=== PATIENT | male | born 1955 | race Caucasian/White ===

== ENCOUNTER 2017-09-18 01:24 | Inpatient (IN) | payer MEDICARE ==
[2017-09-18] MEDS: FUROSEMIDE 40 MG INJ IV (03:34)
[2017-09-18 03:50] LABS: ADD MAN DIFF? NO
[2017-09-18 04:05] LABS: WHITE BLOOD COUNT 8.5 10^3/ul (4.8-10.8)
[2017-09-18 04:05] LABS: BASOPHILS % 0.4 % (0.0-2.0); EOSINOPHILS # 0.1 10^3/ul (0.0-0.5); EOSINOPHILS % 1.3 % (0.0-7.0); HEMATOCRIT 46.9 % (42.0-52.0); HEMOGLOBIN 15.9 g/dl (14.0-18.0); LYMPHOCYTES # 2.1 10^3/ul (0.8-2.9); LYMPHOCYTES % 24.5 % (15.0-51.0); MEAN CORPUSCULAR HEMOGLOBIN 33.5 pg (29.0-33.0); MEAN CORPUSCULAR HGB CONC 33.9 g/dl (32.0-37.0); MEAN CORPUSCULAR VOLUME 98.7 fl (82.0-101.0); MEAN PLATELET VOLUME 12.3 fl (7.4-10.4); MONOCYTE # 0.8 10^3/ul (0.3-0.9); MONOCYTES % 9.1 % (0.0-11.0); NEUTROPHIL # 5.4 10^3/ul (1.6-7.5); NEUTROPHILS % 64.1 % (39.0-77.0); PLATELET COUNT 160 10^3/UL (140-415); RED BLOOD COUNT 4.75 10^6/ul (4.70-6.10); RED CELL DISTRIBUTION WIDTH 14.3 % (11.5-14.5)
[2017-09-18 04:09] LABS: ALANINE AMINOTRANSFERASE 29 IU/L (13-69); ALBUMIN 3.9 g/dl (3.3-4.9); ALBUMIN/GLOBULIN RATIO 1.02; ALKALINE PHOSPHATASE 102 IU/L (42-121); ANION GAP 16 (8-16); ASPARTATE AMINO TRANSFERASE 43 IU/L (15-46); BILIRUBIN,INDIRECT 2.3 mg/dl (0-1.1); BILIRUBIN,TOTAL 2.3 mg/dl (0.2-1.3); BLOOD UREA NITROGEN 13 mg/dl (7-20); CALCIUM 8.9 mg/dl (8.4-10.2); CARBON DIOXIDE 29 mmol/L (21-31); CHLORIDE 105 mmol/L (97-110); CREATININE 0.63 mg/dl (0.61-1.24); GLUCOSE 87 mg/dl (70-220); POTASSIUM 3.8 mmol/L (3.5-5.1); SODIUM 146 mmol/L (135-144); TOTAL PROTEIN 7.7 g/dl (6.1-8.1)
[2017-09-18 04:21] LABS: B-TYPE NATRIURETIC PEPTIDE 3560 PG/ML (0-125); TROPONIN-I 0.038 ng/ml (0.00-0.12)
[2017-09-18] MEDS ORDERED: ZOLPIDEM 5 MG TAB PO (09:00)
[2017-09-18] MEDS: LISINOPRIL 5 MG TAB PO (09:42)
[2017-09-18] MEDS: ASPIRIN (EC) 81 MG TAB PO (09:42)
[2017-09-18] MEDS: ENOXAPARIN 40 MG/0.4 ML SYG SC (09:43)
[2017-09-18] MEDS ORDERED: GLUCOSE GEL 15 GRAM TUBE BUCCAL (10:00)
[2017-09-18] MEDS ORDERED: DEXTROSE 50% 50 ML SYRINGE IV ×2 (10:00)
[2017-09-18] MEDS ORDERED: GLUCAGON 1 MG INJ IM (10:00)
[2017-09-18] MEDS ORDERED: GLUCOSE GEL 15 GRAM TUBE PO ×2 (10:00)
[2017-09-18] MEDS: LEVALBUTEROL (NEB) 0.31 MG/3 ML AMP HHN (11:08)
[2017-09-18] MEDS: INSULIN ASPART [NOVOLOG] 3 ML PEN SC ×3 (11:45→21:00)
[2017-09-18] MEDS: POTASSIUM CHLORIDE (SR) 20 MEQ TAB PO ×2 (13:20→22:09)
[2017-09-18] MEDS: FUROSEMIDE 20 MG INJ IV (17:28)
[2017-09-18] MEDS: metFORMIN 500 MG TAB PO (17:28)
[2017-09-18] MEDS ORDERED: FUROSEMIDE 20 MG INJ IV (18:00)
[2017-09-18] MEDS: ATORVASTATIN 80 MG TAB PO (22:08)
[2017-09-18] MEDS: traZODone 50 MG TAB PO (22:09)
[2017-09-19] MEDS: LEVALBUTEROL (NEB) 0.31 MG/3 ML AMP HHN
[2017-09-19] MEDS: ACCU-CHEK XX (02:00)
[2017-09-19] MEDS: FUROSEMIDE 20 MG INJ IV ×4 (05:50→21:30)
[2017-09-19] MEDS: INSULIN ASPART [NOVOLOG] 3 ML PEN SC ×4 (08:00→21:00)
[2017-09-19 08:28] LABS: ADD MAN DIFF? NO
[2017-09-19 08:31] LABS: BASOPHIL # 0.1 10^3/ul (0.0-0.1); BASOPHILS % 0.6 % (0.0-2.0); EOSINOPHILS # 0.2 10^3/ul (0.0-0.5); EOSINOPHILS % 2.4 % (0.0-7.0); HEMATOCRIT 42.9 % (42.0-52.0); HEMOGLOBIN 14.1 g/dl (14.0-18.0); LYMPHOCYTES # 1.4 10^3/ul (0.8-2.9); LYMPHOCYTES % 17.9 % (15.0-51.0); MEAN CORPUSCULAR HEMOGLOBIN 33.2 pg (29.0-33.0); MEAN CORPUSCULAR HGB CONC 32.9 g/dl (32.0-37.0); MEAN CORPUSCULAR VOLUME 100.9 fl (82.0-101.0); MEAN PLATELET VOLUME 11.7 fl (7.4-10.4); MONOCYTE # 0.6 10^3/ul (0.3-0.9); MONOCYTES % 7.7 % (0.0-11.0); NEUTROPHIL # 5.6 10^3/ul (1.6-7.5); NEUTROPHILS % 71.1 % (39.0-77.0); PLATELET COUNT 137 10^3/UL (140-415); POSITIVE DIFF @See below; RED BLOOD COUNT 4.25 10^6/ul (4.70-6.10); RED CELL DISTRIBUTION WIDTH 14.6 % (11.5-14.5)
[2017-09-19 08:31] LABS: WHITE BLOOD COUNT 7.9 10^3/ul (4.8-10.8)
[2017-09-19] MEDS: POTASSIUM CHLORIDE (SR) 20 MEQ TAB PO ×2 (08:31→10:49)
[2017-09-19] MEDS: ASPIRIN (EC) 81 MG TAB PO (08:31)
[2017-09-19] MEDS: metFORMIN 500 MG TAB PO ×2 (08:31→17:34)
[2017-09-19] MEDS: ENOXAPARIN 40 MG/0.4 ML SYG SC (08:32)
[2017-09-19 08:40] LABS: HEMOGLOBIN A1C 5.4 % (0-5.9)
[2017-09-19 08:58] LABS: MAGNESIUM 1.6 mg/dl (1.7-2.5)
[2017-09-19] MEDS ORDERED: LISINOPRIL 5 MG TAB PO (09:00)
[2017-09-19 09:03] LABS: ANION GAP 11 (8-16); BLOOD UREA NITROGEN 22 mg/dl (7-20); CALCIUM 8.5 mg/dl (8.4-10.2); CARBON DIOXIDE 34 mmol/L (21-31); CHLORIDE 101 mmol/L (97-110); CHOL/HDL RATIO 3.7 RATIO; CHOLESTEROL 101 mg/dl (100-200); CREATININE 0.74 mg/dl (0.61-1.24); GLUCOSE 119 mg/dl (70-220); HDL CHOLESTEROL 27 mg/dl (30-78); LDL CHOLESTEROL,CALCULATED 61 mg/dl; POTASSIUM 3.6 mmol/L (3.5-5.1); SODIUM 142 mmol/L (135-144); TRIGLYCERIDES 65 mg/dl (0-149)
[2017-09-19] MEDS ORDERED: FUROSEMIDE 40 MG INJ IV (11:00)
[2017-09-19 11:12] LABS: CREATINE KINASE 54 IU/L (23-200)
[2017-09-19 11:28] LABS: CK INDEX 3.4; TROPONIN-I 0.028 ng/ml (0.00-0.12)
[2017-09-19 11:29] LABS: CK-MB 1.86 ng/ml (0.0-2.4)
[2017-09-19] MEDS: MAGNESIUM SULFATE 4 GM/100 ML 100 ML IVPB (12:55)
[2017-09-19] MEDS: LEVALBUTEROL (NEB) 0.63 MG/3 ML AMP HHN ×2 (15:46→20:07)
[2017-09-19 16:19] LABS: AMPHETAMINE/METHAMPHETAMINE Negative (NEGATIVE); BARBITURATES Negative (NEGATIVE); BENZODIAZEPINES Negative (NEGATIVE); CANNABINOIDS Negative (NEGATIVE); COCAINE Negative (NEGATIVE); OPIATES Negative (NEGATIVE)
[2017-09-19] MEDS ORDERED: FUROSEMIDE 20 MG INJ IV (17:00)
[2017-09-19] MEDS: ATORVASTATIN 80 MG TAB PO (21:27)
[2017-09-19] MEDS: LISINOPRIL 5 MG TAB PO (21:29)
[2017-09-19] MEDS: traZODone 50 MG TAB PO (21:30)
[2017-09-20] MEDS: ACCU-CHEK XX (02:00)
[2017-09-20] MEDS: LEVALBUTEROL (NEB) 0.63 MG/3 ML AMP HHN ×4 (02:40→21:09)
[2017-09-20 06:50] LABS: ADD MAN DIFF? NO
[2017-09-20 06:52] LABS: WHITE BLOOD COUNT 6.8 10^3/ul (4.8-10.8)
[2017-09-20 06:52] LABS: BASOPHILS % 0.6 % (0.0-2.0); EOSINOPHILS # 0.2 10^3/ul (0.0-0.5); EOSINOPHILS % 2.5 % (0.0-7.0); HEMATOCRIT 43.8 % (42.0-52.0); HEMOGLOBIN 14.3 g/dl (14.0-18.0); LYMPHOCYTES # 1.6 10^3/ul (0.8-2.9); LYMPHOCYTES % 23.8 % (15.0-51.0); MEAN CORPUSCULAR HEMOGLOBIN 33.6 pg (29.0-33.0); MEAN CORPUSCULAR HGB CONC 32.6 g/dl (32.0-37.0); MEAN CORPUSCULAR VOLUME 103.1 fl (82.0-101.0); MONOCYTE # 0.6 10^3/ul (0.3-0.9); MONOCYTES % 9.2 % (0.0-11.0); NEUTROPHIL # 4.3 10^3/ul (1.6-7.5); NEUTROPHILS % 63.8 % (39.0-77.0); PLATELET COUNT 122 10^3/UL (140-415); RED BLOOD COUNT 4.25 10^6/ul (4.70-6.10); RED CELL DISTRIBUTION WIDTH 14.5 % (11.5-14.5)
[2017-09-20 07:17] LABS: ANION GAP 11 (8-16); BLOOD UREA NITROGEN 27 mg/dl (7-20); CALCIUM 8.8 mg/dl (8.4-10.2); CHLORIDE 96 mmol/L (97-110); CREATININE 0.75 mg/dl (0.61-1.24); GLUCOSE 136 mg/dl (70-220); POTASSIUM 3.4 mmol/L (3.5-5.1); SODIUM 144 mmol/L (135-144)
[2017-09-20 07:21] LABS: MAGNESIUM 1.9 mg/dl (1.7-2.5)
[2017-09-20 07:24] LABS: CARBON DIOXIDE 37 mmol/L (21-31)
[2017-09-20] MEDS: INSULIN ASPART [NOVOLOG] 3 ML PEN SC ×4 (08:00→20:31)
[2017-09-20] MEDS: metFORMIN 500 MG TAB PO ×2 (08:30→17:40)
[2017-09-20] MEDS: FUROSEMIDE 20 MG INJ IV ×3 (08:31→20:38)
[2017-09-20] MEDS: LISINOPRIL 5 MG TAB PO ×2 (08:32→20:39)
[2017-09-20] MEDS: POTASSIUM CHLORIDE (SR) 20 MEQ TAB PO ×2 (08:32→10:56)
[2017-09-20] MEDS: ASPIRIN (EC) 81 MG TAB PO (08:32)
[2017-09-20] MEDS: ACETAMINOPHEN 325 MG TAB PO (08:34)
[2017-09-20] MEDS: ENOXAPARIN 40 MG/0.4 ML SYG SC (08:34)
[2017-09-20] MEDS: MAGNESIUM SULFATE 2 GM/50 ML 50 ML IVPB (10:57)
[2017-09-20] MEDS: traZODone 50 MG TAB PO (20:28)
[2017-09-20] MEDS: ATORVASTATIN 80 MG TAB PO (20:28)
[2017-09-21] MEDS: LEVALBUTEROL (NEB) 0.63 MG/3 ML AMP HHN ×4 (01:36→19:48)
[2017-09-21] MEDS: ACCU-CHEK XX (02:00)
[2017-09-21] MEDS: FUROSEMIDE 20 MG INJ IV (05:45)
[2017-09-21] MEDS: INSULIN ASPART [NOVOLOG] 3 ML PEN SC ×4 (08:00→20:31)
[2017-09-21 08:16] LABS: ADD MAN DIFF? NO
[2017-09-21 08:19] LABS: WHITE BLOOD COUNT 6.2 10^3/ul (4.8-10.8)
[2017-09-21 08:19] LABS: BASOPHILS % 0.5 % (0.0-2.0); EOSINOPHILS # 0.2 10^3/ul (0.0-0.5); EOSINOPHILS % 2.4 % (0.0-7.0); HEMOGLOBIN 14.3 g/dl (14.0-18.0); LYMPHOCYTES # 1.5 10^3/ul (0.8-2.9); MEAN CORPUSCULAR HGB CONC 32.5 g/dl (32.0-37.0); MEAN CORPUSCULAR VOLUME 104.8 fl (82.0-101.0); MONOCYTE # 0.6 10^3/ul (0.3-0.9); MONOCYTES % 9.9 % (0.0-11.0); NEUTROPHIL # 3.8 10^3/ul (1.6-7.5); PLATELET COUNT 114 10^3/UL (140-415); RED CELL DISTRIBUTION WIDTH 14.5 % (11.5-14.5)
[2017-09-21 08:47] LABS: MAGNESIUM 1.7 mg/dl (1.7-2.5)
[2017-09-21 08:52] LABS: BLOOD UREA NITROGEN 27 mg/dl (7-20); CALCIUM 8.5 mg/dl (8.4-10.2); CHLORIDE 97 mmol/L (97-110); CREATININE 0.73 mg/dl (0.61-1.24); GLUCOSE 84 mg/dl (70-220); POTASSIUM 3.7 mmol/L (3.5-5.1); SODIUM 144 mmol/L (135-144)
[2017-09-21 09:03] LABS: ANION GAP 8 (8-16)
[2017-09-21] MEDS: SPIRONOLACTONE 25 MG TAB PO (09:03)
[2017-09-21] MEDS: LISINOPRIL 5 MG TAB PO ×2 (09:03→20:26)
[2017-09-21] MEDS: ASPIRIN (EC) 81 MG TAB PO (09:03)
[2017-09-21] MEDS: POTASSIUM CHLORIDE (SR) 20 MEQ TAB PO ×2 (09:03→14:00)
[2017-09-21 09:04] LABS: CARBON DIOXIDE 43 mmol/L (21-31)
[2017-09-21] MEDS: ENOXAPARIN 40 MG/0.4 ML SYG SC (09:05)
[2017-09-21] MEDS: metFORMIN 500 MG TAB PO ×2 (09:09→17:27)
[2017-09-21] MEDS: ACETAZOLAMIDE 500 MG INJ IV ×2 (13:07→20:48)
[2017-09-21] MEDS: MAGNESIUM SULFATE 3 GM in DEXTROSE 5% 100 ML IVPB (13:56)
[2017-09-21] MEDS: ATORVASTATIN 80 MG TAB PO (20:22)
[2017-09-21] MEDS: ACETAMINOPHEN 325 MG TAB PO (20:22)
[2017-09-21] MEDS: traZODone 50 MG TAB PO (20:22)
[2017-09-22] MEDS: LEVALBUTEROL (NEB) 0.63 MG/3 ML AMP HHN ×4 (01:37→19:32)
[2017-09-22] MEDS: ACCU-CHEK XX (02:00)
[2017-09-22 06:11] LABS: ADD MAN DIFF? NO
[2017-09-22 06:15] LABS: WHITE BLOOD COUNT 7.1 10^3/ul (4.8-10.8)
[2017-09-22 06:15] LABS: BASOPHILS % 0.4 % (0.0-2.0); EOSINOPHILS # 0.2 10^3/ul (0.0-0.5); EOSINOPHILS % 2.8 % (0.0-7.0); HEMATOCRIT 43.7 % (42.0-52.0); HEMOGLOBIN 13.6 g/dl (14.0-18.0); LYMPHOCYTES % 27.9 % (15.0-51.0); MEAN CORPUSCULAR HEMOGLOBIN 33.2 pg (29.0-33.0); MEAN CORPUSCULAR HGB CONC 31.1 g/dl (32.0-37.0); MEAN CORPUSCULAR VOLUME 106.6 fl (82.0-101.0); MEAN PLATELET VOLUME 12.2 fl (7.4-10.4); MONOCYTE # 0.7 10^3/ul (0.3-0.9); MONOCYTES % 9.6 % (0.0-11.0); NEUTROPHIL # 4.2 10^3/ul (1.6-7.5); PLATELET COUNT 107 10^3/UL (140-415); RED CELL DISTRIBUTION WIDTH 14.6 % (11.5-14.5)
[2017-09-22 06:33] LABS: ANION GAP 13 (8-16); BLOOD UREA NITROGEN 23 mg/dl (7-20); CALCIUM 8.7 mg/dl (8.4-10.2); CARBON DIOXIDE 34 mmol/L (21-31); CHLORIDE 100 mmol/L (97-110); CREATININE 0.82 mg/dl (0.61-1.24); GLUCOSE 87 mg/dl (70-220); POTASSIUM 4.1 mmol/L (3.5-5.1); SODIUM 143 mmol/L (135-144)
[2017-09-22 06:34] LABS: MAGNESIUM 1.8 mg/dl (1.7-2.5)
[2017-09-22] MEDS: FUROSEMIDE 40 MG TAB PO ×2 (07:00→17:15)
[2017-09-22] MEDS: ASPIRIN (EC) 81 MG TAB PO (09:09)
[2017-09-22] MEDS: ACETAZOLAMIDE 500 MG INJ IV (09:09)
[2017-09-22] MEDS: metFORMIN 500 MG TAB PO ×2 (09:09→17:15)
[2017-09-22] MEDS: SPIRONOLACTONE 25 MG TAB PO (09:10)
[2017-09-22] MEDS: LISINOPRIL 5 MG TAB PO ×2 (09:11→21:23)
[2017-09-22] MEDS: POTASSIUM CHLORIDE (SR) 20 MEQ TAB PO (09:11)
[2017-09-22] MEDS: ENOXAPARIN 40 MG/0.4 ML SYG SC (09:12)
[2017-09-22] MEDS: INSULIN ASPART [NOVOLOG] 3 ML PEN SC ×4 (09:14→21:00)
[2017-09-22] MEDS: ATORVASTATIN 80 MG TAB PO (21:22)
[2017-09-22] MEDS: traZODone 50 MG TAB PO (21:22)
[2017-09-22] MEDS: ACETAMINOPHEN 325 MG TAB PO (21:23)
[2017-09-23] MEDS: ACCU-CHEK XX (02:00)
[2017-09-23] MEDS: LEVALBUTEROL (NEB) 0.63 MG/3 ML AMP HHN ×4 (02:32→20:51)
[2017-09-23 06:11] LABS: ADD MAN DIFF? NO
[2017-09-23 06:14] LABS: WHITE BLOOD COUNT 7.4 10^3/ul (4.8-10.8)
[2017-09-23 06:14] LABS: BASOPHIL # 0.1 10^3/ul (0.0-0.1); BASOPHILS % 0.7 % (0.0-2.0); EOSINOPHILS # 0.2 10^3/ul (0.0-0.5); EOSINOPHILS % 2.3 % (0.0-7.0); HEMATOCRIT 43.8 % (42.0-52.0); HEMOGLOBIN 14.1 g/dl (14.0-18.0); LYMPHOCYTES # 1.6 10^3/ul (0.8-2.9); LYMPHOCYTES % 21.7 % (15.0-51.0); MEAN CORPUSCULAR HEMOGLOBIN 33.4 pg (29.0-33.0); MEAN CORPUSCULAR HGB CONC 32.2 g/dl (32.0-37.0); MEAN CORPUSCULAR VOLUME 103.8 fl (82.0-101.0); MEAN PLATELET VOLUME 11.9 fl (7.4-10.4); MONOCYTE # 0.7 10^3/ul (0.3-0.9); MONOCYTES % 8.8 % (0.0-11.0); NEUTROPHIL # 4.9 10^3/ul (1.6-7.5); NEUTROPHILS % 66.2 % (39.0-77.0); PLATELET COUNT 106 10^3/UL (140-415); RED BLOOD COUNT 4.22 10^6/ul (4.70-6.10); RED CELL DISTRIBUTION WIDTH 14.3 % (11.5-14.5)
[2017-09-23] MEDS: FUROSEMIDE 40 MG TAB PO ×2 (06:49→17:41)
[2017-09-23] MEDS: INSULIN ASPART [NOVOLOG] 3 ML PEN SC ×4 (08:00→21:00)
[2017-09-23 08:23] LABS: ANION GAP 16 (8-16); BLOOD UREA NITROGEN 25 mg/dl (7-20); CARBON DIOXIDE 31 mmol/L (21-31); CHLORIDE 100 mmol/L (97-110); CREATININE 0.75 mg/dl (0.61-1.24); GLUCOSE 118 mg/dl (70-220); POTASSIUM 4.1 mmol/L (3.5-5.1); SODIUM 143 mmol/L (135-144)
[2017-09-23] MEDS: LISINOPRIL 5 MG TAB PO ×2 (08:27→21:08)
[2017-09-23] MEDS: POTASSIUM CHLORIDE (SR) 20 MEQ TAB PO (08:27)
[2017-09-23] MEDS: metFORMIN 500 MG TAB PO ×2 (08:28→17:41)
[2017-09-23] MEDS: SPIRONOLACTONE 25 MG TAB PO (08:28)
[2017-09-23] MEDS: ASPIRIN (EC) 81 MG TAB PO (08:28)
[2017-09-23] MEDS: METOPROLOL (XL) 25 MG TAB PO (08:28)
[2017-09-23] MEDS: ENOXAPARIN 40 MG/0.4 ML SYG SC (08:29)
[2017-09-23] MEDS: ATORVASTATIN 80 MG TAB PO (21:08)
[2017-09-23] MEDS: traZODone 50 MG TAB PO (21:08)
[2017-09-23] MEDS: MAGNESIUM SULFATE 2 GM/50 ML 50 ML IVPB (23:22)
[2017-09-24] MEDS: ACCU-CHEK XX (02:00)
[2017-09-24] MEDS: LEVALBUTEROL (NEB) 0.63 MG/3 ML AMP HHN ×4 (02:25→19:16)
[2017-09-24] MEDS: FUROSEMIDE 40 MG TAB PO ×2 (06:26→17:18)
[2017-09-24] MEDS: INSULIN ASPART [NOVOLOG] 3 ML PEN SC ×4 (08:00→20:38)
[2017-09-24] MEDS: ASPIRIN (EC) 81 MG TAB PO (08:01)
[2017-09-24] MEDS: metFORMIN 500 MG TAB PO ×2 (08:01→17:18)
[2017-09-24] MEDS: METOPROLOL (XL) 25 MG TAB PO (08:01)
[2017-09-24] MEDS: SPIRONOLACTONE 25 MG TAB PO (08:01)
[2017-09-24] MEDS: LISINOPRIL 5 MG TAB PO ×2 (08:02→20:37)
[2017-09-24] MEDS: POTASSIUM CHLORIDE (SR) 20 MEQ TAB PO ×2 (08:02→14:42)
[2017-09-24 08:24] LABS: ADD MAN DIFF? NO
[2017-09-24] MEDS: ENOXAPARIN 40 MG/0.4 ML SYG SC (08:35)
[2017-09-24 08:43] LABS: BASOPHILS % 0.3 % (0.0-2.0); EOSINOPHILS # 0.1 10^3/ul (0.0-0.5); EOSINOPHILS % 1.6 % (0.0-7.0); HEMATOCRIT 45.3 % (42.0-52.0); HEMOGLOBIN 14.3 g/dl (14.0-18.0); LYMPHOCYTES # 1.8 10^3/ul (0.8-2.9); LYMPHOCYTES % 19.7 % (15.0-51.0); MEAN CORPUSCULAR HEMOGLOBIN 32.8 pg (29.0-33.0); MEAN CORPUSCULAR HGB CONC 31.6 g/dl (32.0-37.0); MEAN CORPUSCULAR VOLUME 103.9 fl (82.0-101.0); MEAN PLATELET VOLUME 12.3 fl (7.4-10.4); MONOCYTE # 0.8 10^3/ul (0.3-0.9); NEUTROPHIL # 6.2 10^3/ul (1.6-7.5); NEUTROPHILS % 69.2 % (39.0-77.0); PLATELET COUNT 102 10^3/UL (140-415); RED BLOOD COUNT 4.36 10^6/ul (4.70-6.10); RED CELL DISTRIBUTION WIDTH 14.1 % (11.5-14.5)
[2017-09-24 08:43] LABS: WHITE BLOOD COUNT 8.9 10^3/ul (4.8-10.8)
[2017-09-24 08:59] LABS: ANION GAP 15 (8-16); BLOOD UREA NITROGEN 22 mg/dl (7-20); CALCIUM 8.9 mg/dl (8.4-10.2); CARBON DIOXIDE 33 mmol/L (21-31); CHLORIDE 100 mmol/L (97-110); CREATININE 0.65 mg/dl (0.61-1.24); GLUCOSE 101 mg/dl (70-220); POTASSIUM 3.6 mmol/L (3.5-5.1); SODIUM 144 mmol/L (135-144)
[2017-09-24] MEDS: MAGNESIUM SULFATE 1 GM/D5W 100 ML IVPB (15:30)
[2017-09-24] MEDS: traZODone 50 MG TAB PO (20:37)
[2017-09-24] MEDS: ATORVASTATIN 80 MG TAB PO (20:37)
[2017-09-25] MEDS: LEVALBUTEROL (NEB) 0.63 MG/3 ML AMP HHN ×3 (01:32→14:52)
[2017-09-25] MEDS: ACCU-CHEK XX (02:00)
[2017-09-25] MEDS: FUROSEMIDE 40 MG TAB PO (05:41)
[2017-09-25] MEDS: INSULIN ASPART [NOVOLOG] 3 ML PEN SC ×2 (08:00→12:00)
[2017-09-25] MEDS: metFORMIN 500 MG TAB PO (08:56)
[2017-09-25] MEDS: ASPIRIN (EC) 81 MG TAB PO (08:56)
[2017-09-25] MEDS: POTASSIUM CHLORIDE (SR) 20 MEQ TAB PO (08:56)
[2017-09-25] MEDS: SPIRONOLACTONE 25 MG TAB PO (08:57)
[2017-09-25] MEDS: LISINOPRIL 5 MG TAB PO (08:57)
[2017-09-25] MEDS: METOPROLOL (XL) 25 MG TAB PO (08:57)
[2017-09-25] MEDS: ENOXAPARIN 40 MG/0.4 ML SYG SC (08:58)
[2017-09-25 09:08] LABS: ADD MAN DIFF? NO
[2017-09-25 09:18] LABS: WHITE BLOOD COUNT 6.8 10^3/ul (4.8-10.8)
[2017-09-25 09:18] LABS: BASOPHILS % 0.6 % (0.0-2.0); EOSINOPHILS # 0.1 10^3/ul (0.0-0.5); EOSINOPHILS % 2.1 % (0.0-7.0); HEMATOCRIT 45.1 % (42.0-52.0); HEMOGLOBIN 14.2 g/dl (14.0-18.0); LYMPHOCYTES # 1.5 10^3/ul (0.8-2.9); LYMPHOCYTES % 22.3 % (15.0-51.0); MEAN CORPUSCULAR HEMOGLOBIN 32.9 pg (29.0-33.0); MEAN CORPUSCULAR HGB CONC 31.5 g/dl (32.0-37.0); MEAN CORPUSCULAR VOLUME 104.4 fl (82.0-101.0); MONOCYTE # 0.7 10^3/ul (0.3-0.9); MONOCYTES % 9.6 % (0.0-11.0); NEUTROPHIL # 4.4 10^3/ul (1.6-7.5); NEUTROPHILS % 65.3 % (39.0-77.0); PLATELET COUNT 104 10^3/UL (140-415); RED BLOOD COUNT 4.32 10^6/ul (4.70-6.10); RED CELL DISTRIBUTION WIDTH 14.3 % (11.5-14.5)
[2017-09-25 09:50] LABS: ANION GAP 11 (8-16); BLOOD UREA NITROGEN 22 mg/dl (7-20); CALCIUM 8.6 mg/dl (8.4-10.2); CARBON DIOXIDE 35 mmol/L (21-31); CHLORIDE 103 mmol/L (97-110); CREATININE 0.67 mg/dl (0.61-1.24); GLUCOSE 124 mg/dl (70-220); POTASSIUM 4.3 mmol/L (3.5-5.1); SODIUM 145 mmol/L (135-144)
[2017-09-25 10:09] LABS: MAGNESIUM 1.8 mg/dl (1.7-2.5)
== END 2017-09-25 16:19 | disposition home or self-care (01) | DRG 291 ==
LOC: MS4 09-19 03:47 → E/R 01:24 → MS3 05:42
DX: I11.0 Hypertensive heart disease with heart failure (principal); J96.01 Acute respiratory failure with hypoxia; I47.2 Ventricular tachycardia; I50.43 Acute on chronic combined systolic (congestive) and diastolic (congestive) heart failure; I25.10 Atherosclerotic heart disease of native coronary artery without angina pectoris; E11.9 Type 2 diabetes mellitus without complications; E78.5 Hyperlipidemia, unspecified; E87.6 Hypokalemia; F17.210 Nicotine dependence, cigarettes, uncomplicated; F32.9 Major depressive disorder, single episode, unspecified; F41.9 Anxiety disorder, unspecified; F29 Unspecified psychosis not due to a substance or known physiological condition; I42.9 Cardiomyopathy, unspecified; I25.2 Old myocardial infarction; J44.9 Chronic obstructive pulmonary disease, unspecified; N40.0 Benign prostatic hyperplasia without lower urinary tract symptoms; Z91.14 Patient's other noncompliance with medication regimen; Z95.5 Presence of coronary angioplasty implant and graft; Z86.73 Personal history of transient ischemic attack (TIA), and cerebral infarction without residual deficits; Z79.84 Long term (current) use of oral hypoglycemic drugs; Z79.82 Long term (current) use of aspirin
CPT/HCPCS: 36415; 71045; 80048; 80053; 80061; 80307; 82550; 82553; 82962; 83036; 83735; 83880; 84484; 85025; 93005; 93306; 94640; 94664; 96374; 97161; 99285-25; J1120